=== PATIENT | male | born 1995 | race Caucasian/White ===

== ENCOUNTER → 2022-05-03 | Day surgery (SDC) | payer BC ==
[~2022-05-03] MED LIST: Propofol 200 MG/20 ML SDV IV ONE; Sodium Chloride 0.9% 10 ML Syringe FLUSH PRN
[2022-05-03] MEDS: Lactated Ringers 1,000 ML IV SCH (08:00)
== END ==
LOC: FB.SDS 07:14
PROVIDERS: ATTEND Surgery
DX: K21.00 Gastro-esophageal reflux disease with esophagitis, without bleeding (principal); K29.70 Gastritis, unspecified, without bleeding; Z87.891 Personal history of nicotine dependence; Z79.899 Other long term (current) drug therapy
CPT/HCPCS: 00731-QZ; 88305; J2704; J7120